=== PATIENT | female | born 1950 | race Caucasian/White ===

== ENCOUNTER 2018-12-26 20:17 | Emergency (ER) | payer MEDICARE, MEDICAID ==
[~2018-12-26] VITALS: Ht 154.9 cm; Wt 85.0 kg
--- NOTE | 2018-12-26 20:41 | NUR ---
Patient denies any symptoms but checks her blood pressure regularly from home and noticed it had been elevated in the 170s and 180s systolic from home. She has not seen her PCP regarding elevated BP.
[2018-12-26 21:07] LABS: CLARITY,URINE CLEAR (Clear); COLOR,URINE YELLOW (Yellow); GLUCOSE, URINE NEGATIVE (Neg); KETONES,URINE NEGATIVE (Neg); LEUKOCYTE ESTERASE ,URINE NEGATIVE (Neg); NITRITES, URINE NEGATIVE (Neg); OCCULT BLOOD,URINE NEGATIVE (Neg); PH,URINE 5.5 (4.8-8.0); PROTEIN,URINE TRACE mg/dl (Neg); UA COLLECTION TYPE CLN CATCH MIDSTREAM; UROBILINOGEN,URINE 0.2 E.U/dL (0.2-1.0)
[2018-12-26 21:13] LABS: BACTERIA,URINE NONE SEEN /HPF (Neg); RBC,URINE 0-2 /HPF (0-2); SQUAMOUS EPITHELIAL CELL,UR FEW /LPF (FEW); WBC,URINE NONE SEEN /HPF (0-4)
[2018-12-26 21:47] VITALS: BP 183/82
== END 2018-12-26 21:49 | disposition home or self-care (01) ==
LOC: ER 20:18
DX: I10 Essential (primary) hypertension (principal); R51 Headache; Z87.442 Personal history of urinary calculi; Z88.2 Allergy status to sulfonamides
CPT/HCPCS: 81001; 93005; 99284

== ENCOUNTER 2019-11-13 23:16 | Observation (INO) | payer BC, MEDICAID ==
[~2019-11-13] VITALS: Ht 152.4 cm; Wt 81.8 kg
[2019-11-13] MEDS ORDERED: aspirin 81mg tab.chew PO ONE (23:25)
[2019-11-13 23:32] LABS: BASOPHILS % (AUTO) 0.9 % (0-1); EOSINOPHILS # (AUTO) 0.1 X10'3 (0-0.9); EOSINOPHILS % (AUTO) 2.2 % (0-6); HEMATOCRIT 31.9 % (35.0-45.0); HEMOGLOBIN 10.8 g/dl (12.0-16.0); LYMPHOCYTES % (AUTO) 40.8 % (21-51); MEAN CORPUSCULAR HEMOGLOBIN 30.7 PG (27.0-31.0); MEAN CORPUSCULAR VOLUME 90.2 FL (78-98); MONOCYTES # (AUTO) 0.5 X10'3 (0-0.9); MONOCYTES % (AUTO) 9.4 % (2-12); NEUTROPHILS # (AUTO) 2.3 X10'3 (1.8-7.7); NEUTROPHILS % (AUTO) 46.7 % (42-75); PLATELET COUNT 179 X10'3 (140-440); RED BLOOD COUNT 3.53 X10'6 (4.20-5.60); RED CELL DISTRIBUTION WIDTH 13.2 % (11.5-14.5)
[2019-11-13 23:47] LABS: ALANINE AMINOTRANSFERASE 16 U/L (12-78); ALBUMIN 3.3 G/DL (3.4-5.0); ALBUMIN/GLOBULIN RATIO 0.7 (1.1-1.5); ALKALINE PHOSPHATASE 70 IU/L (46-116); ANION GAP 4 (8-16); ASPARTATE AMINO TRANSFERASE 15 U/L (10-37); BILIRUBIN,TOTAL 0.3 MG/DL (0.1-1.0); BLOOD UREA NITROGEN 24 MG/DL (7-18); BUN/CREATININE RATIO 15.9 (6.6-38.0); CALCIUM 8.9 MG/DL (8.5-10.1); CHLORIDE 105 MMOL/L (99-107); CREATININE 1.51 MG/DL (0.40-0.90); GLUCOSE 206 MG/DL (70-104); POTASSIUM 5.2 MMOL/L (3.5-5.1); SODIUM 137 MMOL/L (135-145); TOTAL PROTEIN 8.3 G/DL (6.4-8.2); eGFR 34 ML/MIN
[2019-11-13 23:55] LABS: MAGNESIUM 1.6 MG/DL (1.5-2.4); TROPONIN I < 0.04 NG/ML (0.0-0.05)
[2019-11-14] VITALS (13 sets, daily range): BP systolic 146–204; BP diastolic 66–78
[2019-11-14] MEDS ORDERED: magnesium hydroxide 30ml (MOM) UD suspension PO PRN (00:05)
[2019-11-14] MEDS ORDERED: metoprolol tartrate 1mg/ml inj IV PRN (00:05)
[2019-11-14] MEDS ORDERED: ondansetron/PF 4mg/2ml inj IV PRN (00:05)
[2019-11-14] MEDS ORDERED: mag hydrox/Alum hydrox/simeth 30ml oral suspension PO PRN (00:05)
[2019-11-14] MEDS ORDERED: regadenoson 0.4mg/5ml syringe IV PRN (00:05)
[2019-11-14] MEDS ORDERED: magnesium 4gm in 100ml NS 100 ML IV PRN (00:05)
[2019-11-14] MEDS ORDERED: aminophylline 250mg/10ml inj. IV PRN (00:05)
[2019-11-14] MEDS ORDERED: magnesium 2GM in 50ml NS 50 ML IV PRN (00:05)
[2019-11-14] MEDS ORDERED: nitroGLYCERIN 0.4mg SUBLingual tab SL PRN (00:05)
[2019-11-14] MEDS ORDERED: magnesium Cl slow-release 64mg tablet PO PRN (00:05)
[2019-11-14] MEDS ORDERED: acetaminophen 325mg tablet PO PRN ×2 (00:05)
[2019-11-14] MEDS ORDERED: potassium Cl 20 mEq SR tablet PO PRN ×2 (00:05)
[2019-11-14] MEDS ORDERED: potassium CL 10mEq/100ml bag 100 ML IV PRN ×2 (00:05)
[2019-11-14 00:17] LABS: CLARITY,URINE CLEAR (Clear); COLOR,URINE STRAW (Yellow); GLUCOSE, URINE 100 mg/dl (Neg); KETONES,URINE NEGATIVE (Neg); LEUKOCYTE ESTERASE ,URINE NEGATIVE (Neg); NITRITES, URINE NEGATIVE (Neg); OCCULT BLOOD,URINE TRACE-INTACT (Neg); PROTEIN,URINE 30 mg/dl (Neg); UROBILINOGEN,URINE 0.2 E.U/dL (0.2-1.0)
[2019-11-14 00:22] LABS: UA COLLECTION TYPE CLN CATCH MIDSTREAM
[2019-11-14 00:26] LABS: RBC,URINE NONE SEEN /HPF (0-2); WBC,URINE 0-4 /HPF (0-4)
[2019-11-14 00:27] LABS: BACTERIA,URINE NONE SEEN /HPF (Neg); MUCUS STRANDS FEW /LPF (Neg); SQUAMOUS EPITHELIAL CELL,UR MODERATE /LPF (FEW)
--- NOTE | 2019-11-14 00:29 | NUR ---
ATTEMPTED TO GIVE REPORT TO FLOOR RN; RN ON BREAK CURRENTLY- WILL CALL BACK IN 10
--- NOTE | 2019-11-14 01:00 | NUR ---
pt arrived to PCU unit from ER via [facility], pt ambulated from [facility] to bed independently, A&O x4, pt states no chest pain at this moment, will continue to monitor
--- NOTE | 2019-11-14 01:41 | NUR ---
PAGER ID: [phone] MESSAGE: Kailyn Velasquez [id number] admitted with Chest Pain, pt wishes to be DNR Thank you Yokasta Zavala [id number]
--- NOTE | 2019-11-14 03:23 | NUR ---
PAGER ID: [phone] MESSAGE: Kailyn Velasquez [id number] 69F BP 170/66, PT BP got as high as 219 in ER tonight and pt does not gave any PRN BP meds, was wondering if I could get something please? Thank you Yokasta SALAS [phone]
[2019-11-14] MEDS ORDERED: hydrALAZINE 20mg/ml inj. IV PRN (04:50)
--- NOTE | 2019-11-14 06:00 | NUR ---
Patient in room PCU 3023. I have received report from Yokasta SALAS and had the opportunity to ask questions and assume patient care.
--- NOTE | 2019-11-14 06:26 | NUR ---
Problems reprioritized. Patient report given, questions answered & plan of care reviewed with Wanda SALAS.
[2019-11-14] MEDS ORDERED: K and/or MAG REPLACEMENT MC SCH (08:00)
[2019-11-14] MEDS: heparin, porcine 5000 units/ml vial SQ SCH ×2 (08:27→16:29)
--- NOTE | 2019-11-14 13:02 | NUR ---
PAGER ID: [phone] MESSAGE: [id number] Kailyn Velasquez: SARAH smith results in, No evidence of fixed or reversible myocardial ischemia. Can we feed patent now? thanks [place] [id number]
--- NOTE | 2019-11-14 14:28 | NUR ---
PAGER ID: [phone] MESSAGE: [id number] Zaki Velasquez. BP 185/66 HR 66. During AM med pass BP was also in 180s. I gave hydralazine 10mg IV PRN. Brought down to SBP 160s prior to Cynthia. Inga 1721
[2019-11-14] MEDS ORDERED: CLON0.1T2 PO (14:34)
[2019-11-14] MEDS ORDERED: cloNIDine 0.1 mg tablet PO ONE (14:35)
[2019-11-14] MEDS ORDERED: DIVA-74 PO (15:09)
[2019-11-14] MEDS ORDERED: GLIM2TAB6 PO (15:10)
[2019-11-14] MEDS ORDERED: LORA10TA7 PO (15:10)
[2019-11-14] MEDS ORDERED: HYDR-3686 PO (15:10)
[2019-11-14] MEDS ORDERED: LOSA25TA41 PO (15:10)
[2019-11-14] MEDS ORDERED: KETO5DRO11 EACHEYE (15:10)
[2019-11-14] MEDS ORDERED: CALC-1098 PO (15:24)
[2019-11-14] MEDS ORDERED: SIMV10TA2 PO (15:27)
[2019-11-14] MEDS ORDERED: FLUT16SP2 BOTHNARES (15:27)
--- NOTE | 2019-11-14 15:53 | NUR ---
PAGER ID: [phone] MESSAGE: [id number] Jeffery Velasquez BP 169/66 HR 62 after Inga [id number]
--- NOTE | 2019-11-14 16:15 | NUR ---
Called in new prescriptions to pharmacy of preference [facility] on [facility] [phone]
--- NOTE | 2019-11-14 16:17 | NUR ---
Called [facility] [phone], spoke with Kimberly. She is not able to schedule appts and all nurses are busy at the time. She will provide them with a message to contact patient to set up f/u appt with Forrest ATKINSON in a weeks time.
--- NOTE | 2019-11-14 18:10 | NUR ---
Patient in room PCU 3023. I have received report from Wanda SALAS and had the opportunity to ask questions and assume patient care.
--- NOTE | 2019-11-14 18:20 | NUR ---
Problems reprioritized. Patient report given, questions answered & plan of care reviewed with Yokasta SALAS.
--- NOTE | 2019-11-14 18:45 | NUR ---
Pt discharged with all their belongings, pt brought down in wheelchair to be picked up by friends. follow up appt made for pt and all needs addressed prior to discharge
== END 2019-11-14 19:00 | disposition home or self-care (01) ==
LOC: ER 23:16 → ED HOLD 11-14 00:01 → UNDOADMOB 11-14 00:08 → ED HOLD 11-14 00:08 → PCU 3S 11-14 00:50 → ED HOLD 11-14 00:50 → UNDODISOB 11-14 19:00
PROVIDERS: ADMIT Family Medicine; ATTEND Internal Medicine
DX: R07.89 Other chest pain (principal); I10 Essential (primary) hypertension; E78.5 Hyperlipidemia, unspecified; E78.00 Pure hypercholesterolemia, unspecified; F32.9 Major depressive disorder, single episode, unspecified; N17.9 Acute kidney failure, unspecified; E87.5 Hyperkalemia; Z87.891 Personal history of nicotine dependence; Z87.442 Personal history of urinary calculi; Z79.899 Other long term (current) drug therapy
CPT/HCPCS: 36415; 71045; 78452; 80053; 81001; 83735; 83880; 84484; 85025; 87081; 93005; 93017; 93306; 96372; 96374; 99285; A9500; G0378; J0360; J1644